=== PATIENT | female | born 1995 | race Caucasian/White ===

== ENCOUNTER 2020-07-10 00:54 | Emergency (ER) | payer OTHER ==
[2020-07-10] MEDS ORDERED: CYCLOBENZAPRINE 10 MG TABLET PO STA (01:26)
[2020-07-10] MEDS ORDERED: HYDROmorphone 1 MG/ML CARPUJECT IM STA (01:26)
[2020-07-10] MEDS ORDERED: KETOROLAC 60 MG/2 ML VIAL IM STA (01:26)
--- NOTE | 2020-07-10 01:37 | ED Physician Documentation ---
History of Present Illness - Stated complaint Stated Complaint: BACK PX - Chief complaint Chief Complaint: Back Pain - History obtained from History obtained from: Patient - Additonal information Additional information: Patient comes emergency department complaining of right lower back pain after doing some heavy lifting at work couple of days ago. Patient states that her back has been becoming progressively tighter over the evening and that now she feels as though she is having a spasm. Patient denies any urinary symptoms. No fevers or chills. No abdominal pain. No direct injury. Patient states that this happened to her about a month ago, as well, and she was seen at where they did a CT scan to check for kidney stones. She states that they did not see any stones descending or in the kidneys. No other complaints at this time. Patient states she has not taken anything for the pain. Review of Systems Ten Systems: 10 systems reviewed and negative Constitutional: reports: Reviewed and negative Eyes: reports: Reviewed and negative Ears: reports: Reviewed and negative Nose: reports: Reviewed and negative Throat: reports: Reviewed and negative Cardiac: reports: Reviewed and negative Respiratory: reports: Reviewed and negative GI: reports: Reviewed and negative : denies: Dysuria, Frequency, Incontinent Skin: reports: Reviewed and negative Musculoskeletal: reports: Back pain. denies: Extremity pain Neurologic: denies: Focal weakness, Numbness Psychiatric: reports: Reviewed and negative Endocrine: reports: Reviewed and negative Immunocompromised: reports: Reviewed and negative PD PAST MEDICAL HISTORY - Past Medical History Past Medical History: No - Past Surgical History Past Surgical History: No - Present Medications Home Medications: Ambulatory Orders Medication Instructions Recorded Confirmed Cyclobenzaprine [Flexeril] 10 mg PO TID PRN #10 tablet 07/10/20 HYDROcod/ACETAM 5/325 [[place] 5/325] 1 - 2 ea PO Q6H PRN #10 tablet 07/10/20 - Allergies Allergies/Adverse Reactions: Allergies Allergy/AdvReac Type Severity Reaction Status Date / Time No Known Drug Allergies Allergy Verified 07/10/20 01:04 - Social History Does the pt smoke?: No Smoking Status: Never smoker Does the pt drink ETOH?: No Does the pt have substance abuse?: No - Immunizations Immunizations are current?: Yes - POLST Patient has POLST: No PD ED PE NORMAL - Vitals Vital signs reviewed: Yes - General General: Alert and oriented X 3, No acute distress - HEENT HEENT: Atraumatic, PERRL, EOMI, Moist mucous membranes - Neck Neck: Supple, no meningeal sign - Respiratory Respiratory: No respiratory distress - Back Back: No CVA TTP, No spinal TTP, Other (Moderate tenderness over right lumbar paraspinal musculature. No SI tenderness.) - Derm Derm: Normal color, Warm and dry, No rash - Extremities Extremities: No deformity - Neuro Neuro: Alert and oriented X 3 - Psych Psych: Normal mood, Normal affect Results - Vitals Vitals: Vital Signs - 24 hr 07/10/20 01:00 Temperature 36.1 C L Heart Rate 83 Respiratory 16 Rate Blood Pressure 118/80 O2 Saturation 100 Oxygen O2 Source Room air PD MEDICAL DECISION MAKING - ED course Complexity details: considered differential, d/w patient ED course: The patient was treated symptomatically in the emergency department with IM Toradol and Dilaudid and p.o. Flexeril. She did have a ride home from somebody else. I did not find any evidence of an emergent cause of the patient's back pain. Based on the history and physical exam, though the source of the patient's pain seemed most likely to be muscular. I have discussed home management of the symptoms with the patient, as well as usual indications for return. She has been given a work note. Departure - Departure Disposition: 01 Home, Self Care Clinical Impression: Back pain Qualifiers: Back pain location: low back pain Chronicity: acute Back pain laterality: right Sciatica presence: without sciatica Qualified Code(s): M54.5 - Low back pain Instructions: ED Low Back Pain Injury Prescriptions: Cyclobenzaprine [Flexeril] 10 mg PO TID PRN #10 tablet PRN Reason: Spasms HYDROcod/ACETAM 5/325 [[place] 5/325] 1 - 2 ea PO Q6H PRN #10 tablet PRN Reason: Pain Forms: Activity restrictions
[2020-07-10 02:12] VITALS: BP 101/63
== END 2020-07-10 02:12 | disposition home or self-care (01) ==
LOC: ED 00:54
DX: M54.5 Low back pain (principal); X50.0XXA Overexertion from strenuous movement or load, initial encounter; Y99.0 Civilian activity done for income or pay
CPT/HCPCS: 96372; 99283; 99284; A9270; J1170